=== PATIENT | female | born 1940 | race Caucasian/White ===

== ENCOUNTER 2020-12-17 07:38 | Outpatient (CLI) | payer OTHER | END 2020-12-17 07:47 | disposition home or self-care (01) | LOC: RX STUDY 07:38 | PROVIDERS: ATTEND Internal Medicine Gastroenterology | DX: Z12.11 Encounter for screening for malignant neoplasm of colon (principal); K21.00 Gastro-esophageal reflux disease with esophagitis, without bleeding; K29.00 Acute gastritis without bleeding; K44.9 Diaphragmatic hernia without obstruction or gangrene; Z86.010 Personal history of colon polyps ==

== ENCOUNTER 2020-12-30 07:40 | Outpatient (CLI) | payer OTHER | END 2020-12-30 07:50 | disposition home or self-care (01) | LOC: RX STUDY 07:40 | PROVIDERS: ATTEND Internal Medicine | DX: C17.9 Malignant neoplasm of small intestine, unspecified (principal) ==

== ENCOUNTER 2024-12-25 09:42 | Outpatient (CLI) | payer OTHER | END 2024-12-25 09:43 | disposition home or self-care (01) | LOC: TOM 09:42 | PROVIDERS: ATTEND Internal Medicine Gastroenterology | DX: Z12.11 Encounter for screening for malignant neoplasm of colon (principal) ==